=== PATIENT | female | born 1960 | race Two or more races ===

== ENCOUNTER 2016-12-15 07:12 | Inpatient (IN) | payer OTHER ==
[~2016-12-15] VITALS: Ht 152.4 cm; Wt 81.6 kg
[~2016-12-15 07:12] MED LIST: AUGMENTIN 875-1 EAC1 ORAL; AZITHROMYCIN250 MG ORAL; NKM; PEPCID40 MG PO; PROMETHAZINE-C118 M1 ORAL
[2016-12-15] MEDS ORDERED: Mylanta II UD 30ml ORAL ONE (07:30)
[2016-12-15] MEDS ORDERED: Lidocaine 2% Visc 15ml soln ORAL ONE (07:30)
[2016-12-15 08:04] LABS: APPEARANCE,URINE CLEAR; KETONES,URINE NEGATIVE (NEGATIVE); LEUKOCYTE ESTERASE ,URINE 1+ (NEGATIVE); NITRITE,URINE NEGATIVE (NEGATIVE); PH,URINE 5 (4.5-8.0); PROTEIN,URINE 3+ (NEGATIVE); UROBILINOGEN,URINE NORMAL MG/DL (0.0-1.0)
[2016-12-15 08:09] LABS: MEAN CORPUSCULAR HEMOGLOBIN 27.1 PG (27.0-31.0); MEAN CORPUSCULAR VOLUME 87 FL (80-99); MEAN PLATELET VOLUME 6.7 FL (6.5-10.1); PLATELET COUNT 242 K/UL (150-450); RED BLOOD COUNT 5.19 M/UL (4.20-5.40); RED CELL DISTRIBUTION WIDTH 13.2 % (11.6-14.8); WHITE BLOOD COUNT 8.2 K/UL (4.8-10.8)
[2016-12-15] MEDS ORDERED: Pantoprazole Inj IVP ONE (08:15)
--- NOTE | 2016-12-15 08:15 | Emergency Room Report ---
History of Present Illness General Chief Complaint: Abdominal Pain Source: Patient, Medical Record Present Illness HPI This patient has a history of gastritis. She states that she has had recurrent episodes of upper abdominal pain with nausea and vomiting. She states she's been diagnosed with gastritis. She states that she does have authorization to see a conservation worker to undergo upper endoscopy. She has not made an appointment yet. She does take acid reflux medications. She presents today with recurrence of previous symptoms. She states that she developed nausea, vomiting and diarrhea yesterday evening around 8 PM. She states that the symptoms were persistent and unrelenting all night. She denies chest pain or shortness of breath. She has no other complaints. Allergies: Coded Allergies: No Known Allergies (Unverified , 11/28/14) Patient History Past Medical History: see triage record, HTN, GERD, other - gastritis, anemia Past Surgical History: mario Social History: Denies: alcohol use, drug use, smoking Last Menstrual Period: menopause Reviewed Nursing Documentation: PMH: Agreed, PSxH: Agreed Nursing Documentation-PMH Past Medical History: No History, Except For Hx Hypertension: Yes Hx Gastrointestinal Problems: Yes - gatritis Review of Systems All Other Systems: negative except mentioned in HPI Physical Exam Vital Signs Date Time Temp Pulse Resp B/P Pulse Ox O2 Delivery O2 Flow Rate FiO2 12/15/16 07:31 97.3 73 16 164/72 99 Room Air Sp02 EP Interpretation: reviewed, normal General Appearance: no apparent distress, alert, GCS 15, non-toxic, other - actively vomiting Head: normocephalic, atraumatic Eyes: bilateral eye PERRL, bilateral eye normal inspection ENT: hearing grossly normal, normal pharynx, no angioedema, normal voice Neck: full range of motion, supple/symm/no masses Respiratory: chest non-tender, lungs clear, normal breath sounds, speaking full sentences Cardiovascular #1: regular rate, rhythm, no edema Gastrointestinal: normal bowel sounds, soft, non-distended, no guarding, no rebound, tenderness - TTP upper abdomen Rectal: deferred Musculoskeletal: back normal, gait/station normal, normal range of motion, non- tender Neurologic: alert, oriented x3, responsive, motor strength/tone normal, sensory intact, speech normal Psychiatric: judgement/insight normal, memory normal, mood/affect normal, no suicidal/homicidal ideation Skin: normal color, no rash, warm/dry, well hydrated Medical Decision Making Diagnostic Impression: Primary Impression: SBO (small bowel obstruction) ER Course This patient has a history of gastritis. She has had similar symptoms previously. However, when I was reviewing the patient's previous CT scan there was some questionable dilated small bowel. The patient's laboratory workup overall is benign. The patient's had slight elevations in AST and ALT. Patient is significantly tender to palpation on examination. I feel I should repeat a CT of the abdomen and pelvis given the previous CT and my physical exam , this showed evidence of a SBO. The patient was given Zofran, protonix, Mylanta, viscous lidocaine and Zantac. An NG tube was also placed on this patient. However, the tube became displaced during a vomiting episode in the patient refused replacement of the NG tube. The patient is admitted for further evaluation and treatment. Labs Test 12/15/16 07:50 White Blood Count 8.2 K/UL (4.8-10.8) Red Blood Count 5.19 M/UL (4.20-5.40) Hemoglobin 14.1 G/DL (12.0-16.0) Hematocrit 45.3 % (37.0-47.0) Mean Corpuscular Volume 87 FL (80-99) Mean Corpuscular Hemoglobin 27.1 PG (27.0-31.0) Mean Corpuscular Hemoglobin Concent 31.0 G/DL (32.0-36.0) Red Cell Distribution Width 13.2 % (11.6-14.8) Platelet Count 242 K/UL (150-450) Mean Platelet Volume 6.7 FL (6.5-10.1) Neutrophils (%) (Auto) % (45.0-75.0) Lymphocytes (%) (Auto) % (20.0-45.0) Monocytes (%) (Auto) % (1.0-10.0) Eosinophils (%) (Auto) % (0.0-3.0) Basophils (%) (Auto) % (0.0-2.0) Urine Color Pale yellow Urine Appearance Clear Urine pH 5 (4.5-8.0) Urine Specific [place] 1.025 (1.005-1.035) Urine Protein 3+ (NEGATIVE) Urine Glucose (UA) Negative (NEGATIVE) Urine Ketones Negative (NEGATIVE) Urine Occult Blood 2+ (NEGATIVE) Urine Nitrite Negative (NEGATIVE) Urine Bilirubin Negative (NEGATIVE) Urine Urobilinogen Normal MG/DL (0.0-1.0) Urine Leukocyte Esterase 1+ (NEGATIVE) Urine RBC 2-4 /HPF (0 - 2) Urine WBC 2-4 /HPF (0 - 2) Urine Squamous Epithelial Cells Few /LPF (NONE/OCC) Urine Bacteria Few /HPF (NONE) Urine Mucus Few /LPF (NONE/OCC) Sodium Level 138 mEQ/L (135-145) Potassium Level 4.8 mEQ/L (3.4-4.9) Chloride Level 98 mEQ/L (98-107) Carbon Dioxide Level 24 mEQ/L (20-30) Anion Gap 16 (5-15) Blood Urea Nitrogen 16 mg/dL (7-23) Creatinine 0.7 mg/dL (0.5-0.9) Estimat Glomerular Filtration Rate > 60 mL/min (>60) Glucose Level 166 mg/dL (74-106) Calcium Level 9.3 mg/dL (8.6-10.2) Total Bilirubin 0.9 mg/dL (0.0-1.2) Aspartate Amino Transf (AST/SGOT) 41 U/L (5-40) Alanine Aminotransferase (ALT/SGPT) 41 U/L (3-33) Alkaline Phosphatase 83 U/L (35-104) Total Protein 7.7 g/dL (6.6-8.7) Albumin 4.4 g/dL (3.5-5.2) Globulin 3.3 g/dL Albumin/Globulin Ratio 1.3 (1.0-2.7) Lipase 27 U/L (< 60) CT/MRI/US Diagnostic Results CT/MRI/US Diagnostic Results : Imaging Test Ordered: CT abd/pelvis Impression Impression: Dilated fluid-filled ileal loops, with transition to normal caliber distal ileum in the mid pelvis. Findings are concerning for distal small bowel obstruction. However, similar findings were also demonstrated on 11/28/2014 exam except that there is no transition point, so it is possible that findings could be on the basis of enteritis or ileus. Correlation with clinical findings is recommended Fatty liver Prior cholecystectomy Small hiatal hernia Prominent right paraovarian veins, could indicate the presence of pelvic congestion syndrome. Correlate with clinical history Critical value findings discussed by phone with Dr. Ferris in the emergency room at the time of interpretation Last Vital Signs Date Time Temp Pulse Resp B/P Pulse Ox O2 Delivery O2 Flow Rate FiO2 12/15/16 07:31 97.3 73 16 164/72 99 Room Air Disposition: ADMITTED INPATIENT Condition: Serious Referrals: KIRA SAUNDERS,REFERRING (PCP) HERIBERTO FERRIS D.O. Dec 15, 2016 08:15
[2016-12-15 08:19] LABS: ALANINE AMINOTRANSFERASE 41 U/L (3-33); ALBUMIN/GLOBULIN RATIO 1.3 (1.0-2.7); ANION GAP 16 (5-15); ASPARTATE AMINO TRANSFERASE 41 U/L (5-40); CALCIUM 9.3 mg/dL (8.6-10.2); CARBON DIOXIDE 24 mEQ/L (20-30); CHLORIDE 98 mEQ/L (98-107); CREATININE 0.7 mg/dL (0.5-0.9); GLOMERULAR FILTRATION RATE > 60 mL/min (>60); HEMOLYSIS 1; LIPASE 27 U/L (< 60); POTASSIUM 4.8 mEQ/L (3.4-4.9); SODIUM 138 mEQ/L (135-145); TOTAL PROTEIN 7.7 g/dL (6.6-8.7)
[2016-12-15 08:22] LABS: BACTERIA,URINE FEW /HPF; MUCUS,URINE FEW /LPF (NONE/OCC); SQUAMOUS EPITHELIAL CELL,UR FEW /LPF (NONE/OCC)
[2016-12-15 08:23] VITALS: BP 166/78
[2016-12-15] MEDS ORDERED: Morphine Sulfate 4mg/ml Inj IVP ONE ×2 (10:00→11:30)
[2016-12-15 11:40] LABS: BAND NEUTROPHILS % (MANUAL) 1 % (0-8); BASOPHILS % (MANUAL) 0 % (0-2); EOSINOPHILS % (MANUAL) 0 % (0-3); HYPOCHROMASIA 1+; LYMPHOCYTES % (MANUAL) 8 % (20-45); NEUTROPHILS % (MANUAL) 88 % (45-75); PLATELET ESTIMATE ADEQUATE; PLATELET MORPHOLOGY NORMAL; TOTAL CELLS COUNTED 100
--- NOTE | 2016-12-15 12:01 | Diagnostic Imaging Report ---
Clinical Indication: Left upper quadrant pain since last night with nausea, vomiting, diarrhea. History of gastritis Technique: No oral contrast utilized, per emergency room physician request IV administration nonionic contrast. Venous phase spiral acquisition obtained through the abdomen and pelvis. Multiplanar reconstructions were generated. Total dose length product 889 mGycm. CTDIvol(s) 18 mGy Comparison: 11/28/2014 Findings: The jejunum is normal in caliber. However, there is dilatation of the ileum, which is gas and fluid filled. The distal ileum normal in caliber. There is a transition point in the pelvic midline, images 62 through 67 series 3. The distal ileum is suggestively slightly thick walled. Note that on the prior scan, dilated fluid-filled distal small bowel loops are also noted, but without any normal caliber distal ileum. The appendix is normal. There is no evidence of diverticulosis or diverticulitis. No free or loculated intraperitoneal air or fluid. The distal esophagus demonstrates a small sliding-type hiatal hernia. The stomach is nondistended, grossly unremarkable. The liver is diffusely hypoattenuating, consistent with fatty change. There is evidence of prior cholecystectomy. No biliary ductal dilatation. The pancreas, spleen, adrenals, kidneys are unremarkable. No retroperitoneal or mesenteric mass or adenopathy. There are prominent right paraovarian veins. The included lung bases are clear. The heart is upper limits of normal in size. The bones demonstrate mild degenerative spondylosis changes. Impression: Dilated fluid-filled ileal loops, with transition to normal caliber distal ileum in the mid pelvis. Findings are concerning for distal small bowel obstruction. However, similar findings were also demonstrated on 11/28/2014 exam except that there is no transition point, so it is possible that findings could be on the basis of enteritis or ileus. Correlation with clinical findings is recommended Fatty liver Prior cholecystectomy Small hiatal hernia Prominent right paraovarian veins, could indicate the presence of pelvic congestion syndrome. Correlate with clinical history Critical value findings discussed by phone with Dr. Lozano in the emergency room at the time of interpretation The CT scanner at [facility] is accredited by the [employer] and the scans are performed using protocols designed to limit radiation exposure to as low as reasonably achievable to attain images of sufficient resolution adequate for diagnostic evaluation.
[2016-12-15 12:12] VITALS: BP 150/66
[2016-12-15] MEDS ORDERED: Metoclopramide 10mg/2ml Inj IVP ONE (14:00)
[2016-12-15 14:03] VITALS: BP 145/65
[2016-12-15 15:30] VITALS: BP 116/61
--- NOTE | 2016-12-15 18:42 | History and Physical ---
History of Present Illness General Date patient seen: Dec 15, 2016 Time patient seen: 18:42 Reason for Hospitalization: Abdominal Pain Present Illness HPI 55y/o female with pmh of gastritis, cholecystectomy who presents with recurrent episodes of upper abdominal pain with nausea and vomiting. She states she's been diagnosed with gastritis. She states that she does have authorization to see a teacher advisor to undergo upper endoscopy. She has not made an appointment yet. She does take acid reflux medications. She presents today with recurrence of previous symptoms. She states that she developed nausea, vomiting and diarrhea yesterday evening around 8 PM. She states that the symptoms were persistent and unrelenting all night. She denies chest pain or shortness of breath. She has no other complaints. In ED, pt had CT a/p done which showed concern for distal SBO. NGT was placed but it was then displaced and pt refused replacement. Allergies: Coded Allergies: No Known Allergies (Unverified , 11/28/14) Medication History Scheduled No Known Medications* (NKM - No Known Medications*), 0 ., (Reported) Pantoprazole* (Pantoprazole*), 40 MG ORAL DAILY Scheduled PRN Hydrocodone Bit/Acetaminophen 5-325* ([place] 5-325*), 1 TAB ORAL Q6H PRN Ondansetron Odt* (Zofran Odt*), 4 MG ORAL Q6H PRN Discontinued Medications Famotidine (Pepcid), 40 MG PO DAILY Discontinued Reason: MD discontinued med Patient History History Provided By: Patient, Family Member, Medical Record Healthcare decision maker Resuscitation status Advanced Directive on File Past Medical/Surgical History Past Medical/Surgical History: (1) S/P cholecystectomy Social History Social History: (1) No significant social history Review of Systems ROS Narrative CONSTITUTIONAL: No weight loss, fever, chills, weakness or fatigue. HEENT: Eyes: No visual loss, blurred vision, double vision or yellow sclerae. Ears, Nose, Throat: No hearing loss, sneezing, congestion, runny nose or sore throat. SKIN: No rash or itching. CARDIOVASCULAR: No chest pain, chest pressure or chest discomfort. No palpitations or edema. RESPIRATORY: No shortness of breath, cough or sputum. GASTROINTESTINAL: +abd pain, +n/v NEUROLOGICAL: No headache, dizziness, syncope, paralysis, ataxia, numbness or tingling in the extremities. No change in bowel or bladder control. MUSCULOSKELETAL: No muscle, back pain, joint pain or stiffness. HEMATOLOGIC: No anemia, bleeding or bruising. LYMPHATICS: No enlarged nodes. No history of splenectomy. PSYCHIATRIC: No history of depression or anxiety. ENDOCRINOLOGIC: No reports of sweating, cold or heat intolerance. No polyuria or polydipsia. ALLERGIES: No history of asthma, hives, eczema or rhinitis. Physical Exam Physical Exam Narrative General: alert, cooperative, no distress, appears stated age Head: normocephalic, without obvious abnormality, atraumatic Eyes: conjunctivae/corneas clear. PERRL, EOM's intact Throat: lips, mucosa, and tongue normal. MMM Neck: supple, symmetrical, trachea midline, and no JVD Lungs: clear to auscultation bilaterally Heart: regular rate and rhythm, S1, S2 normal, no murmur, click, rub or gallop Abdomen: soft, +TTP of epigastrium, non-distended, bowel sounds normal; no masses or organomegaly Extremities: extremities normal, atraumatic, no cyanosis or edema Pulses: 2+ and symmetric Skin: skin color, texture, turgor normal; no rashes or lesions Neurologic: grossly normal, no focal deficits Last 24 Hour Vital Signs Date Time Temp Pulse Resp B/P Pulse Ox O2 Delivery O2 Flow Rate FiO2 12/15/16 15:45 97.9 75 14 116/61 97 Room Air 12/15/16 15:30 97.9 75 14 116/61 97 Room Air 12/15/16 14:05 97.3 12/15/16 14:03 88 18 145/65 98 Room Air 12/15/16 12:12 82 15 150/66 100 Room Air 12/15/16 11:08 97.3 12/15/16 08:23 74 19 166/78 100 Room Air 12/15/16 07:31 97.3 73 16 164/72 99 Room Air Laboratory Tests Test 12/15/16 07:50 White Blood Count 8.2 K/UL (4.8-10.8) Red Blood Count 5.19 M/UL (4.20-5.40) Hemoglobin 14.1 G/DL (12.0-16.0) Hematocrit 45.3 % (37.0-47.0) Mean Corpuscular Volume 87 FL (80-99) Mean Corpuscular Hemoglobin 27.1 PG (27.0-31.0) Mean Corpuscular Hemoglobin Concent 31.0 G/DL (32.0-36.0) L Red Cell Distribution Width 13.2 % (11.6-14.8) Platelet Count 242 K/UL (150-450) Mean Platelet Volume 6.7 FL (6.5-10.1) Neutrophils (%) (Auto) % (45.0-75.0) Lymphocytes (%) (Auto) % (20.0-45.0) Monocytes (%) (Auto) % (1.0-10.0) Eosinophils (%) (Auto) % (0.0-3.0) Basophils (%) (Auto) % (0.0-2.0) Differential Total Cells Counted 100 Neutrophils % (Manual) 88 % (45-75) H Lymphocytes % (Manual) 8 % (20-45) L Monocytes % (Manual) 3 % (1-10) Eosinophils % (Manual) 0 % (0-3) Basophils % (Manual) 0 % (0-2) Band Neutrophils 1 % (0-8) Platelet Estimate Adequate Platelet Morphology Normal Hypochromasia 1+ Urine Color Pale yellow Urine Appearance Clear Urine pH 5 (4.5-8.0) Urine Specific [place] 1.025 (1.005-1.035) Urine Protein 3+ (NEGATIVE) H Urine Glucose (UA) Negative (NEGATIVE) Urine Ketones Negative (NEGATIVE) Urine Occult Blood 2+ (NEGATIVE) H Urine Nitrite Negative (NEGATIVE) Urine Bilirubin Negative (NEGATIVE) Urine Urobilinogen Normal MG/DL (0.0-1.0) Urine Leukocyte Esterase 1+ (NEGATIVE) H Urine RBC 2-4 /HPF (0 - 2) H Urine WBC 2-4 /HPF (0 - 2) Urine Squamous Epithelial Cells Few /LPF (NONE/OCC) Urine Bacteria Few /HPF (NONE) Urine Mucus Few /LPF (NONE/OCC) H Sodium Level 138 mEQ/L (135-145) Potassium Level 4.8 mEQ/L (3.4-4.9) Chloride Level 98 mEQ/L (98-107) Carbon Dioxide Level 24 mEQ/L (20-30) Anion Gap 16 (5-15) H Blood Urea Nitrogen 16 mg/dL (7-23) Creatinine 0.7 mg/dL (0.5-0.9) Estimat Glomerular Filtration Rate > 60 mL/min (>60) Glucose Level 166 mg/dL (74-106) H Calcium Level 9.3 mg/dL (8.6-10.2) Total Bilirubin 0.9 mg/dL (0.0-1.2) Aspartate Amino Transf (AST/SGOT) 41 U/L (5-40) H Alanine Aminotransferase (ALT/SGPT) 41 U/L (3-33) H Alkaline Phosphatase 83 U/L (35-104) Total Protein 7.7 g/dL (6.6-8.7) Albumin 4.4 g/dL (3.5-5.2) Globulin 3.3 g/dL Albumin/Globulin Ratio 1.3 (1.0-2.7) Lipase 27 U/L (< 60) Height (Feet): 5 Height (Inches): 2.00 Weight (Pounds): 180 Assessment/Plan Problem List: (1) SBO (small bowel obstruction) ICD Codes: K56.69 - Other intestinal obstruction SNOMED: 643850906 (2) Gastritis ICD Codes: K29.70 - Gastritis, unspecified, without bleeding SNOMED: 3248986 Status: stable Assessment/Plan Admit inpt NPO Pt refusing replacement of NGT mIVFs PPI Serial abd exams GI consult Pain control, bowel regimen, supportive care Monitor CBC, BMP Brai Marley M.D. Dec 15, 2016 18:42
[2016-12-15] MEDS ORDERED: Morphine Sulfate 2mg/ml Inj IVP PRN (18:45)
[2016-12-15] MEDS ORDERED: LORazepam Inj 2mg/ml 1ml IV PRN (18:45)
[2016-12-15] MEDS ORDERED: Mylanta II UD 30ml ORAL PRN (18:45)
[2016-12-15] MEDS ORDERED: Lidocaine 2% Visc 15ml soln ORAL PRN (18:45)
[2016-12-15] MEDS ORDERED: Norco 10mg/325mg tab ORAL PRN (18:45)
[2016-12-15] MEDS ORDERED: Metoclopramide 10mg/2ml Inj IVP PRN (18:45)
[2016-12-15] MEDS ORDERED: Zolpidem 5mg tab ORAL PRN (18:45)
[2016-12-15] MEDS ORDERED: D5 1/2NS w/KCl 20mEq 1,000 ML IV SCH (19:38)
[2016-12-15 20:00] VITALS: BP 114/51
[2016-12-15] MEDS: D5 1/2NS 1,000 ML IV SCH (21:49)
[2016-12-15] MEDS: Heparin 5000 units/ml inj SUBQ SCH (21:50)
[2016-12-15] MEDS: Docusate 100mg tablet ORAL SCH (21:50)
[2016-12-16] VITALS: BP 134/64
[2016-12-16 03:31] VITALS: BP 126/66
[2016-12-16] MEDS: D5 1/2NS 1,000 ML IV SCH ×2 (06:38→16:30)
[2016-12-16 07:17] LABS: BASOPHILS % (AUTO) 0.4 % (0.0-2.0); LYMPHOCYTES % (AUTO) 40.1 % (20.0-45.0); MEAN CORPUSCULAR HEMOGLOBIN 27.6 PG (27.0-31.0); MEAN CORPUSCULAR HGB CONC 31.8 G/DL (32.0-36.0); MEAN CORPUSCULAR VOLUME 87 FL (80-99); MONOCYTES % (AUTO) 11.8 % (1.0-10.0); NEUTROPHILS % (AUTO) 45.8 % (45.0-75.0); PLATELET COUNT 211 K/UL (150-450); RED CELL DISTRIBUTION WIDTH 12.7 % (11.6-14.8); WHITE BLOOD COUNT 5.4 K/UL (4.8-10.8)
[2016-12-16 07:34] LABS: ALANINE AMINOTRANSFERASE 33 U/L (3-33); ALBUMIN/GLOBULIN RATIO 1.3 (1.0-2.7); ANION GAP 13 (5-15); ASPARTATE AMINO TRANSFERASE 33 U/L (5-40); CALCIUM 8.5 mg/dL (8.6-10.2); CARBON DIOXIDE 27 mEQ/L (20-30); CHLORIDE 102 mEQ/L (98-107); CREATININE 0.6 mg/dL (0.5-0.9); GLOMERULAR FILTRATION RATE > 60 mL/min (>60); HEMOLYSIS 17; MAGNESIUM 2.2 mg/dL (1.7-2.5); POTASSIUM 4.1 mEQ/L (3.4-4.9); SODIUM 142 mEQ/L (135-145); TOTAL PROTEIN 6.2 g/dL (6.6-8.7)
[2016-12-16 08:00] VITALS: BP 153/90
[2016-12-16 08:01] LABS: BILIRUBIN,DIRECT 0.2 mg/dL (0.1-0.3)
[2016-12-16] MEDS: Heparin 5000 units/ml inj SUBQ SCH (09:00)
[2016-12-16] MEDS ORDERED: Pantoprazole Inj IV SCH (09:00)
[2016-12-16] MEDS: Docusate 100mg tablet ORAL SCH (09:00)
[2016-12-16 12:20] VITALS: BP 130/73
[2016-12-16 16:00] VITALS: BP 140/89
[2016-12-16] MEDS ORDERED: ZOFRAN ODT4 MG ORAL (16:27)
[2016-12-16] MEDS ORDERED: PANTOPRAZOLE SO40 MG ORAL (16:31)
[2016-12-16] MEDS ORDERED: NORCO 5-325 TA1 EACH ORAL (16:32)
--- NOTE | 2016-12-16 16:33 | Discharge Instructions ---
Discharge Instructions Discharge Instructions Follow up with: F/u with primary care physician and gastroenterology Call MD/Return to Hospital if: fevers, nausea/vomiting, abd pain, chest pain, SOB Diet: low fat Resume Normal Activity?: Yes Activity: resume normal activities For Congestive Heart Failure Reminder Report to your physician any weight gain of 5 pounds or more in one week. Bari Marley M.D. Dec 16, 2016 16:33
--- NOTE | 2016-12-16 21:58 | Consultation ---
DATE OF CONSULTATION: 12/16/2016 GASTROENTEROLOGY CONSULTATION CHIEF COMPLAINT: Nausea, vomiting, and abdominal pain. HISTORY OF PRESENT ILLNESS: This is a very pleasant 55-year-old female, who came to the hospital with complaint of one-day of severe nausea, vomiting, and diarrhea. The patient in the ER had a CT of the abdomen and pelvis. CT showed evidence of possible small bowel obstruction, but although this is chronic compared to prior imaging. The patient had fatty liver, prior history of cholecystectomy, hiatal hernia, and prominent right ovarian vein. The patient at this time denies any recurrent nausea or vomiting, and has minimum abdominal pain on the left lower quadrant, but she states she wants to eat and she wants to go home. PAST MEDICAL HISTORY: Significant for: 1. History of fatty liver. 2. Hypertension. 3. Cholecystectomy for gallstones. 4. Gastritis. 5. Anemia and history of blood transfusion in the past. PAST SURGICAL HISTORY: Cholecystectomy. ALLERGIES: No known drug allergy. MEDICATIONS: Please see medication reconciliation list. SOCIAL HISTORY: There is no history of tobacco, alcohol, or drug abuse. FAMILY HISTORY: Noncontributory. REVIEW OF SYSTEMS: A 10-point review of system was performed and pertinent positives as mentioned in the history of present illness. PHYSICAL EXAMINATION: VITAL SIGNS: Temperature 97.7 degrees, pulse is 64, respirations 19, and blood pressure 130/73. HEENT: Normocephalic and atraumatic. NECK: Supple. No lymphadenopathy. CARDIOVASCULAR: Regular rhythm. Plus S1 and S2. No obvious murmur. LUNGS: Clear to auscultation bilaterally. ABDOMEN: Positive bowel sounds. Soft. There is minimal tenderness to palpation in the left lower quadrant. No rebound. No guarding. No peritoneal sign. EXTREMITIES: No cyanosis. No clubbing. No edema. LABORATORY DATA: White count is 5.4, hemoglobin 11.9, hematocrit 37.4, and platelet count is 211,000. Chemistry, sodium 142, potassium 4.1, BUN is 11, and creatinine is 0.6. Liver function is grossly normal. ASSESSMENT AND PLAN: This is a 55-year-old female with nausea, vomiting, and diarrhea. CT suspicious for small bowel obstruction, but the patient just passed gas now. Abdominal pain according to her significantly improved. There is no leukocytosis. No significant abnormal liver function tests. Relatively benign exam for minimum tenderness, so we will recommend starting the patient on a diet and advance as tolerated. If the patient tolerated diet without any vomiting, can go home today and follow up as an outpatient. Melecio Fanta [place] DR: BHANU JOB#: [id number] CC:
--- NOTE | 2016-12-16 22:12 | Discharge Summary ---
Discharge Summary Hospital Course Date of Admission Dec 15, 2016 at 12:20 Date of Discharge Dec 16, 2016 at 18:47 Admitting Diagnosis SBO Reason for Hospitalization: SBO HPI 55y/o female with pmh of gastritis, cholecystectomy who presents with recurrent episodes of upper abdominal pain with nausea and vomiting. She states she's been diagnosed with gastritis. She states that she does have authorization to see a product safety technical assistant to undergo upper endoscopy. She has not made an appointment yet. She does take acid reflux medications. She presents today with recurrence of previous symptoms. She states that she developed nausea, vomiting and diarrhea yesterday evening around 8 PM. She states that the symptoms were persistent and unrelenting all night. She denies chest pain or shortness of breath. She has no other complaints. In ED, pt had CT a/p done which showed concern for distal SBO. NGT was placed but it was then displaced and pt refused replacement. Consultations Gastroenterology Hospital Course Pt was admitted and treated conservatively with NPO, IVFs, serial abdominal exams. Pt continued to refuse NGT re-placement. GI was consulted. Given improvement in symptoms, pt was started on CLD and advanced to soft diet which she tolerated well. Prior to d/c, pt was HD stable, tolerating PO, and ambulating w/o assistance. Discharge Medications New Medications: Hydrocodone Bit/Acetaminophen 5-325* ([place] 5-325*) 1 Each Tablet 1 TAB ORAL Q6H PRN, #30 TAB 0 Refills Ondansetron Odt* (Zofran Odt*) 4 Mg Tab.rapdis 4 MG ORAL Q6H PRN, #30 TAB 0 Refills Pantoprazole* (Pantoprazole*) 40 Mg Tablet.dr 40 MG ORAL DAILY for 30 Days, TAB Discontinued Medications: Famotidine (Pepcid) 40 Mg Tablet 40 MG PO DAILY, #7 TAB 0 Refills Discharge Condition Upon Discharge: stable Discharge Disposition Patient was discharged to Home (01) Discharge Diagnoses: (1) SBO (small bowel obstruction) (2) Gastritis Discharge Instructions Discharge Instructions Follow up with: F/u with primary care physician and gastroenterology Call MD/Return to Hospital if: fevers, nausea/vomiting, abd pain, chest pain, SOB Activity: resume normal activities Bari Marley M.D. Dec 16, 2016 22:12
--- NOTE | 2016-12-17 15:17 | Discharge Summary ---
Discharge Summary Hospital Course Date of Admission Dec 15, 2016 at 12:20 Date of Discharge Dec 16, 2016 at 18:47 Admitting Diagnosis SBO HPI Columba Solorio is a 55 year old female who was admitted on Dec 15, 2016 at 12:20 for Small Bowel Obstruction Hospital Course 55y/o female with pmh of gastritis, cholecystectomy who presents with recurrent episodes of upper abdominal pain with nausea and vomiting. She states she's been diagnosed with gastritis. She states that she does have authorization to see a solution director to undergo upper endoscopy. She has not made an appointment yet. She does take acid reflux medications. She presents today with recurrence of previous symptoms. She states that she developed nausea, vomiting and diarrhea yesterday evening around 8 PM. She states that the symptoms were persistent and unrelenting all night. She denies chest pain or shortness of breath. She has no other complaints. In ED, pt had CT a/p done which showed concern for distal SBO. NGT was placed but it was then displaced and pt refused reinsertion. She was seen by GI specialist. CT suspicious for small bowel obstruction, but the patient passed gas. Abdominal pain improved. There is no leukocytosis. No significant abnormal liver function tests. Relatively benign exam for minimum tenderness. Diet was advanced. I have been assigned to complete a discharge summary on this account. I was not involved in the patient's management. --Ranjan Navarro NP Problem List: (1) SBO (small bowel obstruction), resolved. (2) Gastritis Discharge Discharge Disposition Patient was discharged to Home (01) Discharge Diagnoses: Discharge Instructions Discharge Instructions Follow up with: F/u with primary care physician and gastroenterology Call MD/Return to Hospital if: fevers, nausea/vomiting, abd pain, chest pain, SOB Activity: resume normal activities Sandy Navarro NP Dec 17, 2016 15:17
== END 2016-12-16 18:47 | disposition home or self-care (01) | DRG 390 ==
LOC: EMR 07:44 → 4W 12:20 → EDBEDREQ 15:16 → 4W 12-16 12:49
DX: K56.60 Unspecified intestinal obstruction (principal); I10 Essential (primary) hypertension; K29.70 Gastritis, unspecified, without bleeding
CPT/HCPCS: 36415; 74177; 80053; 81003; 82248; 83690; 83735; 85007; 85025; J2405; J2765

== ENCOUNTER 2018-11-07 22:45 | Inpatient (IN) | payer MEDICAID, OTHER ==
[~2018-11-07] VITALS: Ht 152.4 cm; Wt 86.2 kg
[~2018-11-07 22:45] MED LIST changes: +NORCO 5-325 TA1 EACH ORAL; +PANTOPRAZOLE SO40 MG ORAL; +ZOFRAN ODT4 MG ORAL
[2018-11-07] MEDS ORDERED: UNOBMED (23:01)
[2018-11-07 23:05] VITALS: BP 174/83
--- NOTE | 2018-11-07 23:08 | NUR ---
ED Nurse Note: Patient walk in c/o N/V and upper abdominal pain since this morning.
[2018-11-07] MEDS ORDERED: Morphine Sulfate 4mg/ml Inj (IV/IM USE ONLY) IVP ONE (23:15)
--- NOTE | 2018-11-07 23:27 | NUR ---
ED Nurse Note: Pt friend left phone number to contact [phone]
[2018-11-07 23:37] LABS: BASOPHILS % (AUTO) 0.4 % (0.0-2.0); EOSINOPHILS % (AUTO) 0.6 % (0.0-3.0); HEMATOCRIT 43.3 % (37.0-47.0); HEMOGLOBIN 13.1 G/DL (12.0-16.0); LYMPHOCYTES % (AUTO) 12.6 % (20.0-45.0); MEAN CORPUSCULAR VOLUME 79 FL (80-99); MONOCYTES % (AUTO) 4.5 % (1.0-10.0); NEUTROPHILS % (AUTO) 81.9 % (45.0-75.0); PLATELET COUNT 273 K/UL (150-450); RED BLOOD COUNT 5.49 M/UL (4.20-5.40); RED CELL DISTRIBUTION WIDTH 16.7 % (11.6-14.8); WHITE BLOOD COUNT 12.7 K/UL (4.8-10.8)
[2018-11-07 23:47] LABS: ANION GAP 10 mmol/L (5-15); BLOOD UREA NITROGEN 17 mg/dL (7-18); CALCIUM 9.3 MG/DL (8.5-10.1); CARBON DIOXIDE 26 MMOL/L (21-32); CHLORIDE 103 MMOL/L (98-107); POTASSIUM 4.5 MMOL/L (3.5-5.1); SODIUM 139 MMOL/L (136-145)
[2018-11-07 23:52] LABS: ALANINE AMINOTRANSFERASE 37 U/L (12-78); ALBUMIN/GLOBULIN RATIO 0.9 (1.0-2.7); ALKALINE PHOSPHATASE 116 U/L (46-116); ASPARTATE AMINO TRANSFERASE 35 U/L (15-37); BILIRUBIN,TOTAL 0.8 MG/DL (0.2-1.0)
--- NOTE | 2018-11-07 23:55 | NUR ---
ED Nurse Note: PT refused NG tube order. aware.
--- NOTE | 2018-11-08 00:04 | Emergency Room Report ---
History of Present Illness General Chief Complaint: Abdominal Pain Source: Patient Present Illness HPI Is a 57-year-old female with history hypertension. She also history of cystectomy with recurrent gastritis. She has previous small bowel obstruction in the past. She presents with chief complaint of abdominal pain. Localized to the epigastric area. She has several episode of bilious vomiting. No diarrhea. Not passing gas. Pain is sharp in nature. 9 out of 10. No fever chills. Similar symptom in the past. Medication not helping. Allergies: Coded Allergies: No Known Allergies (Unverified , 11/28/14) Patient History Past Medical History: see triage record, old chart reviewed, HTN Past Surgical History: mario Pertinent Family History: none Social History: Denies: smoking Last Menstrual Period: [place] Now: No Immunizations: other Reviewed Nursing Documentation: PMH: Agreed; PSxH: Agreed Nursing Documentation-PMH Past Medical History: No History, Except For Hx Cardiac Problems: No Hx Hypertension: Yes Hx Cancer: No Hx Gastrointestinal Problems: Yes - Gastritis Hx Neurological Problems: No Review of Systems Eye: Denies: eye pain, blurred vision ENT: Denies: ear pain, nose congestion, throat swelling Respiratory: Denies: cough, shortness of breath Cardiovascular: Denies: chest pain, palpitations Gastrointestinal: Reports: abdominal pain, nausea, vomiting; Denies: diarrhea Musculoskeletal: Denies: back pain, joint pain Skin: Denies: rash Neurological: Denies: headache, numbness Endocrine: Denies: increased thirst, increased urine Hematologic/Lymphatic: Denies: easy bruising All Other Systems: negative except mentioned in HPI Physical Exam Vital Signs Date Time Temp Pulse Resp B/P (MAP) Pulse Ox O2 Delivery O2 Flow Rate FiO2 11/07/18 22:57 97.5 70 16 174/83 97 Room Air 11/07/18 23:05 99 vitals with high blood pressure Sp02 EP Interpretation: reviewed, normal General Appearance: well appearing, no apparent distress, alert Head: normocephalic, atraumatic Eyes: bilateral eye PERRL, bilateral eye EOMI ENT: hearing grossly normal, normal pharynx Neck: full range of motion, supple, no meningismus Respiratory: chest non-tender, lungs clear, normal breath sounds Cardiovascular #1: regular rate, rhythm, no murmur Gastrointestinal: no mass, no organomegaly, no bruit, non-distended, tenderness - Epigastric, decreased bowel sounds Musculoskeletal: back normal, gait/station normal, normal range of motion Neurologic: alert, oriented x3 Psychiatric: mood/affect normal Skin: warm/dry Medical Decision Making Diagnostic Impression: Primary Impression: SBO (small bowel obstruction) ER Course Patient with small bowel obstruction. This probably secondary to adhesion. 2 border. Patient is otherwise stable and patient will be admitted here versus transfer based on insurance. This was approved for admission here. NG tube was placed. She is pain-free now. Fell better. She wanted to leave. She is competent to leave AMA. I discussed this with her family and they could not convince her to change her mind. We'll discharge AMA. Rhythm Strip Diag. Results EP Interpretation: yes Rate: 88 Rhythm: NSR, no PVC's, no ectopy Other X-Ray Diagnostic Results Other X-Ray Diagnostic Results : X-Ray ordered: KUB # of Views/Limited Vs Complete: 1 View Indication: Pain EP Interpretation: Yes Interpretation: no dislocation, no soft tissue swelling, no fractures, other - NG tube in stomach Impression: Other - NGT in satisfactory position CT/MRI/US Diagnostic Results CT/MRI/US Diagnostic Results : Imaging Test Ordered: CT abdomen and pelvis Impression Read by radiologist. Small bowel obstruction. Last Vital Signs Date Time Temp Pulse Resp B/P (MAP) Pulse Ox O2 Delivery O2 Flow Rate FiO2 11/07/18 23:46 97.5 11/07/18 23:05 70 16 Room Air 99 11/07/18 23:05 174/83 97 Status: improved Disposition: AGAINST MEDICAL ADVICE Condition: Stable Referrals: NON PHYSICIAN (PCP) Additional Instructions: You are leaving AGAINST MEDICAL ADVICE. Follow-up with your doctor FRED. Return if symptom worsen. Chano Lujan MD Nov 08, 2018 00:04
--- NOTE | 2018-11-08 00:10 | NUR ---
ED Nurse Note: PT NG tube place. X ray confirmation is approved my MD Lujan. NG tube is properly in placed, X ray confirmed.
[2018-11-08 00:47] VITALS: BP 150/81
--- NOTE | 2018-11-08 01:12 | NUR ---
ED Nurse Note: PT is transfered to MED SURG with RN SLOAN. pt status, condition and vital signs are reported to ERMD and receving RN prior to transfer. pt vital signs, status and condtion are stable and pt is stable for transfer at this time.
[2018-11-08] MEDS ORDERED: Morphine Sulfate 4mg/ml Inj (IV/IM USE ONLY) IVP ONE (01:30)
--- NOTE | 2018-11-08 02:00 | NUR ---
NURSE NOTES: Recieved patient from ER, report given by Artemio CHEN, patient is in her room, sleep, feels tired, resting, no acute distress noted, NG tube in place, oriented patient to the room, patient speaks both Telugu and Marshallese, belongings were accounted for and signed. RN called Dr. Flores and left a voice message, VSS, 169/90, afebrile. Call light is within reach, bed is in low position and alarm is on.
--- NOTE | 2018-11-08 02:40 | NUR ---
NURSE NOTES: called MD for the second time to obtain an admission orders, left vm
[2018-11-08 04:00] VITALS: BP 150/81
[2018-11-08] MEDS ORDERED: Metoclopramide 10mg/2ml Inj IVP PRN (05:45)
[2018-11-08 05:47] VITALS: BP 149/85
[2018-11-08] MEDS: HYDROmorphone 1mg/ml Carpuject IVP PRN (05:53)
[2018-11-08 07:10] LABS: HEMATOCRIT 43.3 % (37.0-47.0); HEMOGLOBIN 13.5 G/DL (12.0-16.0); MEAN CORPUSCULAR VOLUME 78 FL (80-99); PLATELET COUNT 304 K/UL (150-450); RED BLOOD COUNT 5.58 M/UL (4.20-5.40); RED CELL DISTRIBUTION WIDTH 16.6 % (11.6-14.8); WHITE BLOOD COUNT 14.5 K/UL (4.8-10.8)
[2018-11-08 07:29] LABS: ALANINE AMINOTRANSFERASE 48 U/L (12-78); ALBUMIN 4.1 G/DL (3.4-5.0); ALBUMIN/GLOBULIN RATIO 0.9 (1.0-2.7); ALKALINE PHOSPHATASE 118 U/L (46-116); ANION GAP 13 mmol/L (5-15); ASPARTATE AMINO TRANSFERASE 40 U/L (15-37); BILIRUBIN,TOTAL 1.2 MG/DL (0.2-1.0); BLOOD UREA NITROGEN 17 mg/dL (7-18); CALCIUM 9.3 MG/DL (8.5-10.1); CARBON DIOXIDE 22 MMOL/L (21-32); CHLORIDE 103 MMOL/L (98-107); CREATININE 0.8 MG/DL (0.55-1.30); POTASSIUM 3.8 MMOL/L (3.5-5.1); SODIUM 138 MMOL/L (136-145)
[2018-11-08 07:31] LABS: BILIRUBIN,DIRECT 0.2 MG/DL (0.0-0.3)
--- NOTE | 2018-11-08 07:34 | NUR ---
HAND-OFF: Report given to Antwon CHEN.
--- NOTE | 2018-11-08 07:45 | NUR ---
NURSE NOTES: Received report from APRIL Seth. Rounding done with outgoing nurse. Patient a/o x4. NG tube with continuous low suction and output is greenish color. IV is patent. Bed in lowest position, call light within reach. Will continue to monitor.
[2018-11-08 08:00] VITALS: BP 159/88
[2018-11-08] MEDS: Pantoprazole Inj IVP SCH (09:02)
--- NOTE | 2018-11-08 09:30 | NUR ---
NURSE NOTES: Patient vomited and Dr. Glover aware.
--- NOTE | 2018-11-08 10:03 | Diagnostic Imaging Report ---
Indication: Abdominal pain Technique: Continuous helical transaxial imaging of the abdomen and pelvis was obtained from the lung bases to the pubic symphysis. No intravenous contrast was administered. Coronal 2-D reformats were also obtained. Automatic Exposure Control was utilized. Total Dose length Product (DLP): 902.[address] Dose Index Volume (CTDIvol): 17.25 mGy Comparison: 12/15/2016 CT abdomen pelvis Findings: The stomach and proximal jejunum do not appear distended. However distal small bowel loops appear distended. There appears to be a transition in the lower abdomen/pelvis (for example images 106-108 series 3). The findings are suggestive of a bowel obstruction which may be partial. However, the appearance was very similar to the prior occasion. Please correlate clinically. Focal enteritis/ileus seems unlikely given the transition which appears fairly abrupt. There is no pneumatosis or free air. The bladder is nondistended. Uterus noted. Cholecystectomy noted. Hiatal hernia is present. The liver is hypodense. There is no hydronephrosis. IMPRESSION: Suspicion of mechanical small bowel obstruction involving the distal small bowel with a transition identified in the lower pelvis. The appearance is unchanged from 12/15/2016 suggesting this may be a chronic or intermittent phenomenon. Fatty liver Status post cholecystectomy. Hiatal hernia. [facility] has communicated the preliminary results to the Emergency Department. Their findings are largely concordant with this report. The CT scanner at [facility] is accredited by the [employer] and the scans are performed using dose optimization techniques as appropriate to a performed exam including Automatic Exposure control.
--- NOTE | 2018-11-08 11:30 | NUR ---
NURSE NOTES: Dr. Glover called and want me to call Dr. Flores that patient does not have bowel obstruction. Dr. Flores notified.
--- NOTE | 2018-11-08 12:21 | Diagnostic Imaging Report ---
Indication: Abdominal pain Comparison: None Single view of the abdomen obtained Findings: NG tube is in good position. There is relative absence of bowel gas on the current study. Surgical clips in the right upper quadrant of the abdomen noted. IMPRESSION: Relative absence of bowel gas limits evaluation. NG tube in good position.
--- NOTE | 2018-11-08 13:20 | NUR ---
NURSE NOTES: X-ray small bowel with Gastrografi was done. Patient in stable condition.
--- NOTE | 2018-11-08 13:28 | Diagnostic Imaging Report ---
Indication: Bowel obstruction COMPARISON: CT 11/07/2018 FINDINGS: Small bowel series was performed utilizing water-soluble contrast material. Serial films were obtained. Study was performed through nasogastric tube. There was normal transit of contrast through small bowel with contrast reaching the right hemicolon by about 45 minutes. There is mild mucosal thickening of the some of the distal small bowel loops. At the one hour 30 minute armando, contrast was seen in the left hemicolon. IMPRESSION: Normal bowel transit. No evidence of small bowel obstruction
--- NOTE | 2018-11-08 14:04 | GI Initial Consult Note ---
History of Present Illness General Date patient seen: Nov 08, 2018 Time patient seen: 13:57 Reason for Hospitalization: Abdominal Pain Referring physician: GREGG Goncalves Reason for Consultation: SBO Present Illness HPI Is a 57-year-old female with history hypertension. She also history of cystectomy with recurrent gastritis. She has previous small bowel obstruction in the past. She presents with chief complaint of abdominal pain. Localized to the epigastric area. She has several episode of bilious vomiting. No diarrhea. Not passing gas. Pain is sharp in nature. 9 out of 10. No fever chills. Similar symptom in the past. Medication not helping. GI consulted for abdominal pain, rule out small bowel obstruction. Presents today with epigastric pain. Status post small bowel follow-through noted to have rapid transit with no small bowel obstruction. Labs reviewed; noted with leukocytosis. No anemia. No transaminitis. Unknown history of endoscopic colonoscopy at this time. Home Meds Active Scripts Hydrocodone Bit/Acetaminophen 5-325* (NORCO 5-325*) 1 Each Tablet, 1 TAB ORAL Q6H PRN, #30 TAB 0 Refills Prov:Bari Marley M.D. 12/16/16 Pantoprazole* (PANTOPRAZOLE*) 40 Mg Tablet.dr, 40 MG ORAL DAILY for 30 Days, TAB Prov:Bari Marley M.D. 12/16/16 Ondansetron Odt* (ZOFRAN ODT*) 4 Mg Tab.rapdis, 4 MG ORAL Q6H PRN, #30 TAB 0 Refills Prov:Bari Marley M.D. 12/16/16 Reported Medications Unable to Obtain Medications (UNABLE TO OBTAIN MEDS) 1 Ea Ea 11/07/18 No Known Medications* (NKM - No Known Medications*) ., 0 ., 0 Refills 11/28/14 Med list reviewed/reconciled: Yes Allergies: Coded Allergies: No Known Allergies (Unverified , 11/28/14) Patient History Limited by: medical condition History Provided By: Patient, Medical Record PMH Narrative Past Medical History: see triage record, old chart reviewed, HTN Past Surgical History: mario Pertinent Family History: none Social History: Denies: smoking Last Menstrual Period: [place] Now: No Immunizations: other Reviewed Nursing Documentation: PMH: Agreed; PSxH: Agreed Nursing Documentation-PMH Past Medical History: No History, Except For Hx Cardiac Problems: No Hx Hypertension: Yes Hx Cancer: No Hx Gastrointestinal Problems: Yes - Gastritis Hx Neurological Problems: No Review of Systems All Other Systems: negative except mentioned in HPI Physical Exam Vital Signs Date Time Temp Pulse Resp B/P (MAP) Pulse Ox O2 Delivery O2 Flow Rate FiO2 11/07/18 22:57 97.5 70 16 174/83 97 Room Air 11/07/18 23:05 99 Sp02 EP Interpretation: reviewed, normal Labs Laboratory Tests Test 11/07/18 23:18 11/08/18 06:00 11/08/18 06:23 White Blood Count 12.7 K/UL (4.8-10.8) H 14.5 K/UL (4.8-10.8) H Red Blood Count 5.49 M/UL (4.20-5.40) H 5.58 M/UL (4.20-5.40) H Hemoglobin 13.1 G/DL (12.0-16.0) 13.5 G/DL (12.0-16.0) Hematocrit 43.3 % (37.0-47.0) 43.3 % (37.0-47.0) Mean Corpuscular Volume 79 FL (80-99) L 78 FL (80-99) L Mean Corpuscular Hemoglobin 23.9 PG (27.0-31.0) L 24.2 PG (27.0-31.0) L Mean Corpuscular Hemoglobin Concent 30.2 G/DL (32.0-36.0) L 31.2 G/DL (32.0-36.0) L Red Cell Distribution Width 16.7 % (11.6-14.8) H 16.6 % (11.6-14.8) H Platelet Count 273 K/UL (150-450) 304 K/UL (150-450) Mean Platelet Volume 5.9 FL (6.5-10.1) L 5.8 FL (6.5-10.1) L Neutrophils (%) (Auto) 81.9 % (45.0-75.0) H % (45.0-75.0) Lymphocytes (%) (Auto) 12.6 % (20.0-45.0) L % (20.0-45.0) Monocytes (%) (Auto) 4.5 % (1.0-10.0) % (1.0-10.0) Eosinophils (%) (Auto) 0.6 % (0.0-3.0) % (0.0-3.0) Basophils (%) (Auto) 0.4 % (0.0-2.0) % (0.0-2.0) Sodium Level 139 MMOL/L (136-145) 138 MMOL/L (136-145) Potassium Level 4.5 MMOL/L (3.5-5.1) 3.8 MMOL/L (3.5-5.1) Chloride Level 103 MMOL/L (98-107) 103 MMOL/L (98-107) Carbon Dioxide Level 26 MMOL/L (21-32) 22 MMOL/L (21-32) Anion Gap 10 mmol/L (5-15) 13 mmol/L (5-15) Blood Urea Nitrogen 17 mg/dL (7-18) 17 mg/dL (7-18) Creatinine 1.0 MG/DL (0.55-1.30) 0.8 MG/DL (0.55-1.30) Estimat Glomerular Filtration Rate 56.8 mL/min (>60) > 60 mL/min (>60) Glucose Level 189 MG/DL (74-106) H 169 MG/DL (74-106) H Calcium Level 9.3 MG/DL (8.5-10.1) 9.3 MG/DL (8.5-10.1) Total Bilirubin 0.8 MG/DL (0.2-1.0) 1.2 MG/DL (0.2-1.0) H Aspartate Amino Transf (AST/SGOT) 35 U/L (15-37) 40 U/L (15-37) H Alanine Aminotransferase (ALT/SGPT) 37 U/L (12-78) 48 U/L (12-78) Alkaline Phosphatase 116 U/L (46-116) 118 U/L (46-116) H Total Protein 8.3 G/DL (6.4-8.2) H 8.5 G/DL (6.4-8.2) H Albumin 4.0 G/DL (3.4-5.0) 4.1 G/DL (3.4-5.0) Globulin 4.3 g/dL 4.4 g/dL Albumin/Globulin Ratio 0.9 (1.0-2.7) L 0.9 (1.0-2.7) L Lipase 112 U/L (73-393) Urine Color Pending Urine Appearance Pending Urine pH Pending Urine Specific [place] Pending Urine Protein Pending Urine Glucose (UA) Pending Urine Ketones Pending Urine Blood Pending Urine Nitrite Pending Urine Bilirubin Pending Urine Urobilinogen Pending Urine Leukocyte Esterase Pending Differential Total Cells Counted 100 Neutrophils % (Manual) 86 % (45-75) H Lymphocytes % (Manual) 3 % (20-45) L Monocytes % (Manual) 2 % (1-10) Eosinophils % (Manual) 0 % (0-3) Basophils % (Manual) 0 % (0-2) Band Neutrophils 9 % (0-8) H Platelet Estimate Adequate Platelet Morphology Normal Hypochromasia 1+ Anisocytosis 1+ Microcytosis 1+ Direct Bilirubin 0.2 MG/DL (0.0-0.3) General Appearance: well appearing, no apparent distress, alert Head: normocephalic EENT: PERRL/EOMI, normal ENT inspection Neck: supple Respiratory: normal breath sounds, no respiratory distress Cardiovascular: normal rate Gastrointestinal: normal inspection, non tender, soft, normal bowel sounds, non -distended Rectal: deferred Genitourinary: no CVA tenderness Musculoskeletal: normal inspection, back normal Neurologic: alert, responsive Psychiatric: memory normal - History 20 alert and oriented Skin: normal inspection, normal color, no rash, warm/dry, palpation normal, well hydrated Lymphatic: normal inspection, no adenopathy Current Medications Current Medications Medications (Trade) Dose Ordered Sig/Monica Route PRN Reason Start Time Stop Time Status Last Admin Dose Admin Amlodipine Besylate (Norvasc) 5 mg DAILY ORAL 11/08/18 09:00 12/08/18 08:59 11/08/18 09:02 Clonidine HCl (Catapres Tab) 0.1 mg Q6H PRN NG For High Blood Pressure 11/08/18 04:15 12/08/18 04:14 Hydromorphone HCl (Dilaudid) 1 mg Q4H PRN IVP For Pain 11/08/18 05:45 11/15/18 05:44 11/08/18 05:53 Metoclopramide HCl (Reglan) 10 mg Q6H PRN IVP Nausea & Vomiting 11/08/18 05:45 12/08/18 05:44 Ondansetron HCl (Zofran) 4 mg Q6H PRN IVP Nausea & Vomiting 11/08/18 04:15 12/08/18 04:14 11/08/18 05:01 Pantoprazole (Protonix) 40 mg DAILY IVP 11/08/18 09:00 12/08/18 08:59 11/08/18 09:02 Sodium Chloride 1,000 ml @ 60 mls/hr [id number] IV 11/08/18 05:00 12/08/18 04:59 11/08/18 04:55 GI: Plan Problems: (1) Abdominal pain of unknown etiology (2) SBO (small bowel obstruction) (3) Enteritis (4) Gastritis (5) S/P cholecystectomy Plan Small bowel follow-through noted with rapid transit and no bowel obstruction. EGD scheduled for tomorrow to evaluate abdominal pain. Maintain n.p.o. plus IV fluids Hold all blood thinners tonight Antibiotics PPI Follow-up labs We will follow with additional recommendations post procedure Discussed with Dr. Espana. Thank you for this patient referral, we will follow. The patient was seen and examined at bedside and all new and available data was reviewed in the patients chart. I agree with the above findings, impression and plan. (Patient seen earlier today. Signature stamp does not reflect patient encounter time.). - MD Le Fall,[facility] CHANNEL SPECIALIST Nov 08, 2018 14:04
--- NOTE | 2018-11-08 14:15 | Consultation ---
DATE OF CONSULTATION: 11/08/2018 CONSULTING PHYSICIAN: Nader Glover M.D. REFERRING PHYSICIAN: Kristie Flores M.D. REASON FOR CONSULTATION: Abdominal pain and vomiting. HISTORY OF PRESENT ILLNESS: This is a 57-year-old female, who presented to emergency room complaining of abdominal pain and vomiting since yesterday morning. The pain apparently is located at the epigastrium and it is crampy. She stated that she had a bowel movement last night, but since the bowel movement she had not passed any gas. She claims that in the last 2 years, she has had this similar episodes a few times and she had always been diagnosed with small bowel obstruction. The only surgery that she had was 19 years ago and that was a laparoscopic cholecystectomy. She denies any fever, cough, dysuria, or frequency. PAST MEDICAL HISTORY: She denies allergies, asthma, diabetes, hypertension, cardiac or renal diseases. SURGERIES: Laparoscopic cholecystectomy. MEDICATIONS: Omeprazole. SOCIAL HISTORY: The patient is a 57-year-old female, who is with 4 children. 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 Denies smoking and drinking. REVIEW OF SYSTEMS: Noncontributory. PHYSICAL EXAMINATION: GENERAL: The patient appeared to be a well-developed, well-nourished, mildly obese, 57-year-old female, lying on the bed, complaining mainly of vomiting. HEENT: Head is normocephalic and atraumatic. Eyes, pupils are equal, round, and reactive to light. Mouth is clear. NECK: There is no palpable thyromegaly or adenopathy. CHEST: Clear to auscultation and percussion. HEART: There is no gallop or murmur. S1 and S2 are within normal limits. ABDOMEN: Obese, soft, with mild tenderness at the epigastrium. Bowel sounds are present. EXTREMITIES: Within normal limits. LABORATORY AND DIAGNOSTIC DATA: CBC has shown a WBC of 12,700 with a left shift. Chemistry is within normal limits except for the blood glucose, which has been 189. CAT scan of the abdomen has been interpreted as small bowel obstruction. The same picture is present in 2015. ASSESSMENT: Abdominal pain. RECOMMENDATION: At this time, I do not feel that the patient has a small bowel obstruction. She probably has peptic ulcer disease. I took the liberty of ordering a small bowel followthrough with Gastrografin. At the present time, she requires a conservative treatment. Thank you, Dr. Kristie Flores, for asking me to participate in the management of this patient. I will follow the patient with you. Nader Glover M.D. DR: JUANA JOB#: [id number] CC:
--- NOTE | 2018-11-08 14:45 | NUR ---
NURSE NOTES: [employer] TRIMMER Agus ordered remove NG tube. Noted and carried out.
--- NOTE | 2018-11-08 14:50 | NUR ---
*-* INSURANCE *-* ALL CLINICALS AND REVIEWS HAVE BEEN FAXED TO: [employer] CALL REF#: [id number] [employer]ENDER: [place]IN F#: [phone] PLEASE FAX CLINICALS TO ABOVE # DAILY
[2018-11-08 16:00] VITALS: BP 130/74
--- NOTE | 2018-11-08 19:30 | NUR ---
NURSE NOTES:Patient received from MOI HERRERA R.N. . Patient A/A/AOX4 .Patient in bed . Patient denies of pain at this time . no s/s of distress noted . ELBA G#20 / ns @60 cc/hr infusing well . call light within reach . bed in low position at all times . will continue to monitor.
--- NOTE | 2018-11-08 19:34 | NUR ---
HAND-OFF: Report given to NEHEMIAS Vann.
[2018-11-08 20:00] VITALS: BP 107/73
--- NOTE | 2018-11-08 20:21 | NUR ---
CASE MANAGEMENT: REVIEW 57/F PRESENTED TO ED FROM HOME CC: ABD PAIN . N/V SI: SBO T 97.5 HR 70 RR 16 BP 174/83 SAT 97% ROOM AIR WBC 12.7 IS: NS IVF BOLUS X1 MORPHINE IV X1 ZOFRAN IV X1 PATIENT ADMITTED TO MED/SURG UNIT 11/07/2018 DCP: PATIENT IS FROM HOME
[2018-11-09] VITALS (12 sets, daily range): BP systolic 101–151; BP diastolic 46–78
--- NOTE | 2018-11-09 01:30 | History and Physical Report ---
DATE OF ADMISSION: 11/08/2018 HISTORY OF PRESENT ILLNESS: The patient came in for initial SBO, had previous gallbladder surgery. Dr. Glover was also consulted by the ER doctor. The patient was having vomiting and having abdominal pain for one day and was also having staring and chills. The patient has a history of hernia surgery, history of tubal ligation, and cholecystectomy. The patient has a risk of SBO. According to SBO on the imaging scan and for that was kept NPO. She was having multiple vomiting and had severe abdominal pain, which is getting better at this point. Denies rectal bleeding. PAST MEDICAL HISTORY: Significant for gastroesophageal reflux disease, hernia, and history of gallstones. PAST SURGICAL HISTORY: Cholecystectomy, hernia surgery, and tubal ligation. MEDICATIONS: None. ALLERGIES: No known allergies. FAMILY HISTORY: Noncontributory. SOCIAL HISTORY: He denies history of smoking, alcohol, or illicit drugs. REVIEW OF SYSTEMS: HEENT: Denies headaches. RESPIRATORY: Denies shortness of breath. Denies cough. CARDIOVASCULAR: Denies chest pain or orthopnea. GASTROINTESTINAL: Reports to have severe abdominal pain and vomiting for one day. EXTREMITIES: Denies pain in lower extremities. PASTRY COOK: Denies change in vision or speech pattern. Feels weak. PHYSICAL EXAMINATION: VITAL SIGNS: Temperature is 98, pulse is 96, and blood pressure 159/88. HEENT: PERRLA. NECK: Supple. No lymphadenopathy. CHEST: Clear to auscultation. CARDIOVASCULAR: Regular rate and rhythm. No murmurs or extra sounds. GASTROINTESTINAL: Mild epigastric tenderness. No rebound. Positive bowel sounds. No organomegaly. Abdomen is soft. EXTREMITIES: Reflexes equal in both sides. Moves all four extremities. No edema. LABORATORY AND DIAGNOSTIC DATA: WBC of 12.7, hemoglobin 13, and platelets of 273,000. Sodium 139, potassium 4.5, chloride 103, BUN of 17 and creatinine 1. LFTs as mentioned normal. Lipase was 112. CT scan shows suspicion of mechanical small bowel obstruction. ASSESSMENT AND PLAN: Small bowel obstruction. NG-tube was placed. The patient is admitted to med/surg. Dr. Glover is consulted. I have also consulted Dr. Nhan Suarez, Dr. Denson, Dr. Espana for azotemia, and also as well as for the management of the abdominal pain and vomiting and small bowel obstruction. Kristie Flores M.D. DR: SHAYE JOB#: [id number] CC:
--- NOTE | 2018-11-09 07:47 | NUR ---
Received patient from Soo DEL CID, patient is up in bed, no distress noted, NPO status maintained, bed is locked and in lowest position, call light within reach, RN will contact MD, will continue to monitor with Kanika CHEN.
--- NOTE | 2018-11-09 07:47 | NUR ---
HAND-OFF: Report given to CASIMIRO Orozco
[2018-11-09 07:49] LABS: BASOPHILS % (AUTO) 0.4 % (0.0-2.0); EOSINOPHILS % (AUTO) 1.6 % (0.0-3.0); HEMATOCRIT 35.7 % (37.0-47.0); HEMOGLOBIN 11.3 G/DL (12.0-16.0); LYMPHOCYTES % (AUTO) 25.4 % (20.0-45.0); MEAN CORPUSCULAR VOLUME 77 FL (80-99); MONOCYTES % (AUTO) 11.2 % (1.0-10.0); NEUTROPHILS % (AUTO) 61.4 % (45.0-75.0); PLATELET COUNT 255 K/UL (150-450); RED BLOOD COUNT 4.63 M/UL (4.20-5.40); RED CELL DISTRIBUTION WIDTH 16.7 % (11.6-14.8); WHITE BLOOD COUNT 6.4 K/UL (4.8-10.8)
[2018-11-09 08:51] LABS: ANION GAP 9 mmol/L (5-15); BLOOD UREA NITROGEN 18 mg/dL (7-18); CALCIUM 8.4 MG/DL (8.5-10.1); CARBON DIOXIDE 25 MMOL/L (21-32); CHLORIDE 105 MMOL/L (98-107); POTASSIUM 3.8 MMOL/L (3.5-5.1); SODIUM 139 MMOL/L (136-145)
--- NOTE | 2018-11-09 09:15 | General Surgery Progress Note ---
General Surgery-Progress Note Subjective Symptoms: improved, pain absent, BM Additional Comments small bowel follow thru no SBO Objective Last 24 Hour Vital Signs Date Time Temp Pulse Resp B/P (MAP) Pulse Ox O2 Delivery O2 Flow Rate FiO2 11/09/18 08:00 98.3 70 18 129/52 (77) 98 11/09/18 04:00 98.7 80 20 127/76 (93) 98 11/09/18 00:00 98.4 84 20 120/74 (89) 98 11/08/18 21:00 Room Air 11/08/18 20:00 99.0 83 19 107/73 (84) 96 11/08/18 16:00 98.6 86 20 130/74 (92) 97 I&O Intake and Output 11/08/18 11/09/18 19:00 07:00 Intake Total 760 ml 1340 ml Output Total 500 ml Balance 260 ml 1340 ml Intake Oral 700 ml 920 ml IV Total 60 ml 420 ml Output Gastric Drainage Total 500 ml # Voids 2 5 # Bowel Movements 1 1 Respiratory: clear Abdomen: soft, flat, non-tender, present bowel sounds Extremities: no tenderness Laboratory Tests Test 11/09/18 07:25 White Blood Count 6.4 K/UL (4.8-10.8) # Red Blood Count 4.63 M/UL (4.20-5.40) Hemoglobin 11.3 G/DL (12.0-16.0) L Hematocrit 35.7 % (37.0-47.0) L Mean Corpuscular Volume 77 FL (80-99) L Mean Corpuscular Hemoglobin 24.4 PG (27.0-31.0) L Mean Corpuscular Hemoglobin Concent 31.6 G/DL (32.0-36.0) L Red Cell Distribution Width 16.7 % (11.6-14.8) H Platelet Count 255 K/UL (150-450) Mean Platelet Volume 6.4 FL (6.5-10.1) L Neutrophils (%) (Auto) 61.4 % (45.0-75.0) Lymphocytes (%) (Auto) 25.4 % (20.0-45.0) Monocytes (%) (Auto) 11.2 % (1.0-10.0) H Eosinophils (%) (Auto) 1.6 % (0.0-3.0) Basophils (%) (Auto) 0.4 % (0.0-2.0) Prothrombin Time 11.0 SEC (9.30-11.50) Prothromb Time International Ratio 1.0 (0.9-1.1) Activated Partial Thromboplast Time 29 SEC (23-33) Sodium Level 139 MMOL/L (136-145) Potassium Level 3.8 MMOL/L (3.5-5.1) Chloride Level 105 MMOL/L (98-107) Carbon Dioxide Level 25 MMOL/L (21-32) Anion Gap 9 mmol/L (5-15) Blood Urea Nitrogen 18 mg/dL (7-18) Creatinine 1.0 MG/DL (0.55-1.30) Estimat Glomerular Filtration Rate 56.8 mL/min (>60) Glucose Level 84 MG/DL (74-106) Calcium Level 8.4 MG/DL (8.5-10.1) L Assessment Additional Comments Abdominal pain resolved Plan Additional Comments I will sign off Nader Glover MD Nov 09, 2018 09:15
[2018-11-09] MEDS: Pantoprazole Inj IVP SCH (09:40)
[2018-11-09] MEDS ORDERED: Lidocaine 1% MPF 10mg/ml 5ml ONE (11:30)
[2018-11-09] MEDS ORDERED: Propofol 200mg/20ml IV ONE (11:30)
--- NOTE | 2018-11-09 11:49 | Anethesia Preoperative Eval ---
Anesthesia Pre-op PMH/ROS General Date of Evaluation: Nov 09, 2018 Time of Evaluation: 11:47 Anesthesiologist: shen ASA Score: ASA 3 Mallampati Score Class I : Soft palate, uvula, fauces, pillars visible Class II: Soft palate, uvula, fauces visible Class III: Soft palate, base of uvula visible Class IV: Only hard plate visible Mallampati Classification: Class II Surgeon: vignesh Diagnosis: anemia Surgical Procedure: egd Anesthesia History: none Family History: no anesthesia problems Allergies: Coded Allergies: No Known Allergies (Unverified , 11/28/14) Medications: see eMAR Patient NPO?: Yes Past Medical History Cardiovascular: Reports: HTN Pulmonary: Reports: other - acute bronchitis Gastrointestinal/Genitourinary: Reports: other - small bowel obstruction Hematology/Immune: Reports: anemia Anesthesia Pre-op Phys. Exam Physician Exam Last Vital Signs Date Time Temp Pulse Resp B/P (MAP) Pulse Ox O2 Delivery O2 Flow Rate FiO2 11/09/18 09:40 70 129/52 11/09/18 08:30 Room Air 11/09/18 08:00 98.3 18 98 11/08/18 01:12 99 Constitutional: NAD Neurologic: CN 2-12 intact Cardiovascular: RRR Respiratory: CTA Gastrointestinal: S/NT/ND Airway Exam Mallampati Score: Class II MO: limited Neck: flexible TMD: 2fb ROM: limited Dentures: upper Anesthesia Pre-op A/P Labs Hematology Test 11/09/18 07:25 White Blood Count 6.4 K/UL (4.8-10.8) # Red Blood Count 4.63 M/UL (4.20-5.40) Hemoglobin 11.3 G/DL (12.0-16.0) L Hematocrit 35.7 % (37.0-47.0) L Mean Corpuscular Volume 77 FL (80-99) L Mean Corpuscular Hemoglobin 24.4 PG (27.0-31.0) L Mean Corpuscular Hemoglobin Concent 31.6 G/DL (32.0-36.0) L Red Cell Distribution Width 16.7 % (11.6-14.8) H Platelet Count 255 K/UL (150-450) Mean Platelet Volume 6.4 FL (6.5-10.1) L Neutrophils (%) (Auto) 61.4 % (45.0-75.0) Lymphocytes (%) (Auto) 25.4 % (20.0-45.0) Monocytes (%) (Auto) 11.2 % (1.0-10.0) H Eosinophils (%) (Auto) 1.6 % (0.0-3.0) Basophils (%) (Auto) 0.4 % (0.0-2.0) Coagulation Test 11/09/18 07:25 Prothrombin Time 11.0 SEC (9.30-11.50) Prothromb Time International Ratio 1.0 (0.9-1.1) Activated Partial Thromboplast Time 29 SEC (23-33) Chemistry Test 11/09/18 07:25 Sodium Level 139 MMOL/L (136-145) Potassium Level 3.8 MMOL/L (3.5-5.1) Chloride Level 105 MMOL/L (98-107) Carbon Dioxide Level 25 MMOL/L (21-32) Anion Gap 9 mmol/L (5-15) Blood Urea Nitrogen 18 mg/dL (7-18) Creatinine 1.0 MG/DL (0.55-1.30) Estimat Glomerular Filtration Rate 56.8 mL/min (>60) Glucose Level 84 MG/DL (74-106) Calcium Level 8.4 MG/DL (8.5-10.1) L Risk Assessment & Plan Assessment: asa3 Plan: mac Status Change Before Surgery: No Pre-Antibiotics Drug: Asha Dejesus MD Nov 09, 2018 11:49
[2018-11-09] MEDS ORDERED: NS 500ML IVPB ONE (11:52)
[2018-11-09] MEDS ORDERED: fentaNYL 100 mcg/2 mL IV PRN (12:00)
[2018-11-09] MEDS ORDERED: DiphenhydrAMINE 50mg/ml Inj IVP PRN (12:00)
[2018-11-09] MEDS ORDERED: Atropine Inj 1mg/10ml Syr IV PRN (12:00)
[2018-11-09] MEDS ORDERED: Midazolam 2mg/2ml Inj IVP PRN (12:00)
--- NOTE | 2018-11-09 12:21 | Endoscopy Procedure Note ---
Endoscopy Procedure Note General Indication for Procedure: abd pain Procedures Performed: EGD Operative Findings/Diagnosis: gastrtis Specimen: yes Pt Tolerated Procedure Well: Yes Estimated Blood Loss: none Anesthesia Anesthesiologist: shen Anesthesia: MAC Inserted Devices Implant(s) used?: No GI Core Measures 50 yrs or older w/o bx or poly: Not Applicable 10yrs. F/U not recommended: Not Applicable Melecio Espana MD Nov 09, 2018 12:21
--- NOTE | 2018-11-09 12:56 | NUR ---
NURSE NOTES: Patient arrived from her EGD, report received from Aida that patient has gastritis, patient diet advanced to clear liquid diet, no distress noted, will continue to monitor.
--- NOTE | 2018-11-09 13:19 | Immediate Post-Op Evaluation ---
Immediate Post-Op Evalulation Immediate Post-Op Evalulation Procedure: egd/bx Date of Evaluation: Nov 09, 2018 Time of Evaluation: 12:25 IV Fluids: 250ml 0.9ns Blood Products: none Estimated Blood Loss: negligible Blood Pressure Systolic: 109 Blood Pressure Diastolic: 46 Pulse Rate: 79 Respiratory Rate: 18 O2 Sat by Pulse Oximetry: 100 Temperature (Fahrenheit): 97.0 Pain Score (1-10): 0 Nausea: No Vomiting: No Complications none Patient Status: awake, reacts, patent Hydration Status: adequate Drug: Asha Dejesus MD Nov 09, 2018 13:19
--- NOTE | 2018-11-09 13:21 | 48 Hour Post Anesthesia Eval ---
Post Anesthesia Evaluation Procedure: egd/bx Date of Evaluation: Nov 09, 2018 Time of Evaluation: 12:27 Blood Pressure Systolic: 120 0: 53 Pulse Rate: 72 Respiratory Rate: 18 Temperature (Fahrenheit): 97.0 O2 Sat by Pulse Oximetry: 100 Airway: patent Nausea: No Vomiting: No Pain Intensity: 0 Hydration Status: adequate Cardiopulmonary Status: stable Mental Status/LOC: patient returned to baseline Post-Anesthesia Complications: none Follow-up care needed: N/A Asha Bishop MD Nov 09, 2018 13:21
--- NOTE | 2018-11-09 16:00 | Procedure Note ---
DATE OF PROCEDURE: 11/09/2018 SURGEON: Melecio Espana M.D. PROCEDURE: Upper endoscopy with biopsy. ANESTHESIA: Per Dr. Quiñonez. INSTRUMENT: Olympus adult flexible upper endoscope. INDICATION: Abdominal pain, nausea, vomiting. REASON FOR PROCEDURE: The procedure, risks, benefits, and possible consequences, including hemorrhage, aspiration, perforation and infection, and alternative treatments, were explained to the patient/legal guardian by Dr. Melecio Espana and the patient/legal guardian understood and accepted these risks. PROCEDURE IN DETAIL: After informed consent was obtained and the patient was adequately sedated, the Olympus upper endoscope was advanced from mouth into the second portion of duodenum and retroflexion was performed in the stomach. The patient had evidence of atrophic gastritis. There was evidence of severe focal gastritis in the proximal body of the stomach around the greater curvature of unknown significance. Biopsy from this area was obtained. We also did random biopsy of the antrum to rule out H. pylori infection. The patient on the retroflexion in the stomach, there was evidence of a small hiatal hernia. The patient tolerated the procedure very well without any complication. SUMMARY OF FINDINGS: 1. Focal severe gastritis status post biopsy. 2. Antral gastritis status post biopsy. 3. Small hiatal hernia. RECOMMENDATIONS: Follow up biopsy results and treat accordingly. I want to thank, Dr. Kristie Flores, for this kind referral. Melecio Espana M.D. DR: Deny JOB#: [id number] CC: Kristie Flores M.D.; Fax#: [phone]
[2018-11-09] MEDS: HYDROmorphone 1mg/ml Carpuject IVP PRN (17:54)
--- NOTE | 2018-11-09 19:35 | NUR ---
HAND-OFF: Report given to APRIL Gardner.
--- NOTE | 2018-11-09 19:39 | NUR ---
NURSE NOTES: Received report from Will CHEN. Pt is A&O x 4 laying supine in bed. No signs of pain or distress. IV site dry& intact, infusing IV fluids. Family at bedside. Call light in reach, bed in lowest position, side rails up x2. Will continue to monitor pt.
--- NOTE | 2018-11-09 21:59 | General Progress Note ---
Assessment/Plan Problem List: (1) Gastritis ICD Codes: K29.70 - Gastritis, unspecified, without bleeding SNOMED: 1799080 (2) SBO (small bowel obstruction) ICD Codes: K56.69 - Other intestinal obstruction SNOMED: 461500749 (3) Abdominal pain of unknown etiology ICD Codes: R10.9 - Unspecified abdominal pain SNOMED: 774806235 Status: progressing Assessment/Plan afebrile sbo resolving opt for conservative management vomitting improving Subjective ROS Limited/Unobtainable: Yes Gastrointestinal/Abdominal: Reports: abdominal pain, nausea Allergies: Coded Allergies: No Known Allergies (Unverified , 11/28/14) Objective Last 24 Hour Vital Signs Date Time Temp Pulse Resp B/P (MAP) Pulse Ox O2 Delivery O2 Flow Rate FiO2 11/09/18 20:00 98.9 69 20 151/78 (102) 97 11/09/18 16:00 99.1 70 18 128/56 (80) 97 11/09/18 13:21 72 18 100 11/09/18 13:19 79 18 100 11/09/18 12:30 72 19 117/63 99 Room Air 11/09/18 12:25 72 18 120/53 98 Room Air 11/09/18 12:23 77 18 115/56 100 Nasal Cannula 3 11/09/18 12:18 75 15 101/49 100 Nasal Cannula 3 11/09/18 12:13 97.0 79 18 109/46 99 Nasal Cannula 3 11/09/18 12:00 98.2 68 18 124/71 (88) 98 11/09/18 11:50 98.2 68 18 124/71 (88) 98 11/09/18 09:40 70 129/52 11/09/18 08:30 Room Air 11/09/18 08:00 98.3 70 18 129/52 (77) 98 11/09/18 04:00 98.7 80 20 127/76 (93) 98 11/09/18 00:00 98.4 84 20 120/74 (89) 98 Intake and Output 11/08/18 11/09/18 19:00 07:00 Intake Total 760 ml 1340 ml Output Total 500 ml Balance 260 ml 1340 ml Intake Oral 700 ml 920 ml IV Total 60 ml 420 ml Output Gastric Drainage Total 500 ml # Voids 2 5 # Bowel Movements 1 1 Laboratory Tests 11/09/18 07:25: White Blood Count 6.4#, Red Blood Count 4.63, Hemoglobin 11.3L, Hematocrit 35.7L , Mean Corpuscular Volume 77L, Mean Corpuscular Hemoglobin 24.4L, Mean Corpuscular Hemoglobin Concent 31.6L, Red Cell Distribution Width 16.7H, Platelet Count 255, Mean Platelet Volume 6.4L, Neutrophils (%) (Auto) 61.4, Lymphocytes (%) (Auto) 25.4, Monocytes (%) (Auto) 11.2H, Eosinophils (%) (Auto) 1.6, Basophils (%) (Auto) 0.4, Prothrombin Time 11.0, Prothromb Time International Ratio 1.0, Activated Partial Thromboplast Time 29, Sodium Level 139, Potassium Level 3.8, Chloride Level 105, Carbon Dioxide Level 25, Anion Gap 9, Blood Urea Nitrogen 18, Creatinine 1.0, Estimat Glomerular Filtration Rate 56.8, Glucose Level 84, Calcium Level 8.4L Height (Feet): 5 Height (Inches): 0.00 Weight (Pounds): 190 Neck: supple Cardiovascular: normal rate Respiratory/Chest: lungs clear Abdomen: soft Kristie Flores MD Nov 09, 2018 21:59
[2018-11-10] VITALS: BP 122/76
[2018-11-10 04:41] VITALS: BP 140/72
--- NOTE | 2018-11-10 07:31 | NUR ---
HAND-OFF: Report given to Jovana RN. Pt is stable.
--- NOTE | 2018-11-10 07:44 | NUR ---
NURSE NOTES: received patient sitting at the edge of the bed. venting about the clear liq diet. obtained to advance diet. explained the importance of the process. patient able to make things known. On IVF infusing well. No c/o N/V. no c/o pain/discomfort noted. bed is in the lowest position. call light is within reach and siderails are up x2. will cont to monitor.
[2018-11-10 07:53] LABS: BASOPHILS % (AUTO) 0.5 % (0.0-2.0); EOSINOPHILS % (AUTO) 1.3 % (0.0-3.0); HEMATOCRIT 41.9 % (37.0-47.0); LYMPHOCYTES % (AUTO) 38.9 % (20.0-45.0); MEAN CORPUSCULAR VOLUME 79 FL (80-99); NEUTROPHILS % (AUTO) 52.3 % (45.0-75.0); PLATELET COUNT 282 K/UL (150-450); RED BLOOD COUNT 5.31 M/UL (4.20-5.40); RED CELL DISTRIBUTION WIDTH 17.1 % (11.6-14.8); WHITE BLOOD COUNT 5.6 K/UL (4.8-10.8)
[2018-11-10 08:12] VITALS: BP 129/81
[2018-11-10 08:19] LABS: ANION GAP 8 mmol/L (5-15); BLOOD UREA NITROGEN 12 mg/dL (7-18); CALCIUM 8.7 MG/DL (8.5-10.1); CARBON DIOXIDE 26 MMOL/L (21-32); CHLORIDE 105 MMOL/L (98-107); CREATININE 0.9 MG/DL (0.55-1.30); POTASSIUM 3.4 MMOL/L (3.5-5.1); SODIUM 139 MMOL/L (136-145)
[2018-11-10] MEDS: Pantoprazole Inj IVP SCH (08:50)
--- NOTE | 2018-11-10 09:15 | NUR ---
NURSE NOTES: Notified Dr. Lewis for the K+3.4 today. awaits for a call back. Addendum: 11/10/[address] LVN obtained order for potassium from [facility]. administered.
[2018-11-10 12:04] VITALS: BP 154/86
--- NOTE | 2018-11-10 12:07 | NUR ---
NURSE NOTES: d/c home with instructions. personal belongings noted. will accompanied by her daughter, Estephania. tolerated food intake well. voiding without any pain or discomfort. no c/o abdominal pain. had bm today. will cont to monitor.
--- NOTE | 2018-11-10 13:02 | GI Progress Note ---
Assessment/Plan Problems: (1) GERD (gastroesophageal reflux disease) ICD Codes: K21.9 - Gastro-esophageal reflux disease without esophagitis SNOMED: 721423213 (2) Abdominal pain of unknown etiology ICD Codes: R10.9 - Unspecified abdominal pain SNOMED: 116284006 (3) Gastritis ICD Codes: K29.70 - Gastritis, unspecified, without bleeding SNOMED: 1005625 (4) Enteritis ICD Codes: K52.9 - Noninfective gastroenteritis and colitis, unspecified SNOMED: 84695416 Status: doing well, stable, progressing Status Narrative Discussed with Dr. Espana Assessment/Plan SUMMARY OF FINDINGS: 1. Focal severe gastritis status post biopsy. 2. Antral gastritis status post biopsy. 3. Small hiatal hernia. RECOMMENDATIONS: okay for DC per GI standpoint Okay to advance diet Prescription for Protonix times 1 month given, to follow-up with PCP Follow up biopsy results and treat accordingly. The patient was seen and examined at bedside and all new and available data was reviewed in the patients chart. I agree with the above findings, impression and plan. (Patient seen earlier today. Signature stamp does not reflect patient encounter time.). - Melecio Espana MD Subjective Subjective Abdominal pain resolved Patient has history of epigastric pain from GERD Objective Last 24 Hour Vital Signs Date Time Temp Pulse Resp B/P (MAP) Pulse Ox O2 Delivery O2 Flow Rate FiO2 11/10/18 12:04 98.0 73 20 154/86 (108) 98 11/10/18 09:00 Room Air 11/10/18 08:12 99.0 77 20 129/81 (97) 97 11/10/18 04:41 98.9 70 18 140/72 (94) 96 11/10/18 00:00 98.6 65 20 122/76 (91) 98 11/09/18 21:00 Room Air 11/09/18 20:00 98.9 69 20 151/78 (102) 97 11/09/18 16:00 99.1 70 18 128/56 (80) 97 11/09/18 13:21 72 18 100 11/09/18 13:19 79 18 100 Intake and Output 11/09/18 11/10/18 19:00 07:00 Intake Total 360 ml 840 ml Balance 360 ml 840 ml Intake Oral 240 ml IV Total 360 ml 600 ml # Voids 3 3 Laboratory Tests Test 11/10/18 05:52 White Blood Count 5.6 K/UL (4.8-10.8) Red Blood Count 5.31 M/UL (4.20-5.40) Hemoglobin 13.0 G/DL (12.0-16.0) Hematocrit 41.9 % (37.0-47.0) Mean Corpuscular Volume 79 FL (80-99) L Mean Corpuscular Hemoglobin 24.5 PG (27.0-31.0) L Mean Corpuscular Hemoglobin Concent 31.0 G/DL (32.0-36.0) L Red Cell Distribution Width 17.1 % (11.6-14.8) H Platelet Count 282 K/UL (150-450) Mean Platelet Volume 5.7 FL (6.5-10.1) L Neutrophils (%) (Auto) 52.3 % (45.0-75.0) Lymphocytes (%) (Auto) 38.9 % (20.0-45.0) Monocytes (%) (Auto) 7.0 % (1.0-10.0) Eosinophils (%) (Auto) 1.3 % (0.0-3.0) Basophils (%) (Auto) 0.5 % (0.0-2.0) Sodium Level 139 MMOL/L (136-145) Potassium Level 3.4 MMOL/L (3.5-5.1) L Chloride Level 105 MMOL/L (98-107) Carbon Dioxide Level 26 MMOL/L (21-32) Anion Gap 8 mmol/L (5-15) Blood Urea Nitrogen 12 mg/dL (7-18) Creatinine 0.9 MG/DL (0.55-1.30) Estimat Glomerular Filtration Rate > 60 mL/min (>60) Glucose Level 78 MG/DL (74-106) Calcium Level 8.7 MG/DL (8.5-10.1) Height (Feet): 5 Height (Inches): 0.00 Weight (Pounds): 190 General Appearance: WD/WN, no apparent distress, alert Cardiovascular: normal rate Respiratory/Chest: normal breath sounds, no respiratory distress Abdominal Exam: normal bowel sounds, non tender, soft Extremities: normal range of motion, non-tender LujanAimee winter NP Nov 10, 2018 13:02
[2018-11-10] MEDS ORDERED: 1/2 NS 1000ml IV ONE (13:24)
--- NOTE | 2018-11-10 13:25 | NUR ---
NURSE NOTES: Patient discharged with family member in stable condition. No complain of N/V and distress. Discharge instruction given to patient and verbalized understanding. Prescription medication and belonging given to patient. IV and ID removed. Patient ambulated out with all personal belongings with steady gait.
--- NOTE | 2018-11-12 10:12 | Discharge Summary ---
Discharge Summary Discharge Summary _ DATE OF ADMISSION: 11/08/2018 DATE OF DISCHARGE: 11/10/2018 DISCHARGED BY: Dr Flores REASON FOR ADMISSION: 57 years old female with history of hypertension, cholecystectomy, recurrent gastritis, previous small bowel obstruction, presented with chief complaint of abdominal pain , localized to the epigastric area. Patient reported several episodes of bilious vomiting. No blood in vomitus. No diarrhea. Patient reported not passing gas. Pain reported as being sharp in nature, 9 out of 10 on a scale 1-10. Patient experienced similar symptoms in the past. Patient denied fever and chills. Upon evaluation vital signs revealed elevated blood pressure 174/83. Laboratory workup revealed leukocytosis WBC 12.7, stable hemoglobin and hematocrit ,stable electrolytes and renal parameters ,stable LFT and lipase. CT of the abdomen and pelvis revealed suspicion of mechanical small bowel obstruction . involving the distal small bowel with transition identified in the lower pelvis. The appearance was unchanged from 12/15/2016, suggesting that this may be a chronic or intermittent phenomenon. Fatty liver. Hiatal hernia. Status post cholecystectomy. Patient was admitted for further management . CONSULTANTS: GI specialist Dr. Espana surgery [facility] COURSE: Patient was admitted to medical surgical floor. Patient was kept n.p.o. and started on the IV hydration. G-tube was inserted for bowel decompression. GI specialist and surgeon closely followed. Patient started on GI prophylaxis with PPI. Patient subsequently undergone upper endoscopy with biopsy to evaluate the cause of abdominal pain on 11/09, which revealed focal severe gastritis, status post biopsy, antral gastritis status post biopsy, small hiatal hernia. GI specialist recommended follow-up with biopsy results and treat accordingly. At the time of this dictation biopsy results still pending. Follow up KUB revealed relative absence of bowel gas . NG tube in good position. Surgeon seen and evaluated the patient. According to surgeon patient did not appear to have bowel obstruction, likely peptic ulcer disease. Surgeon recommended conservative management. Pain management was addressed as needed. Symptomatic care provided , antiemetic administered as needed. Small bowel follow through with Gastrografin revealed no evidence of small bowel obstruction. NG tube was discontinued. Patient was slowly started on liquid diet and was advanced as tolerated. Patient was able to tolerate diet. Patient was given prescription for Protonix for 1 month. Blood pressure was managed with calcium channel lizabeth and stabilized . Abdominal pain resolved, patient was able to tolerate diet , nausea and vomiting resolved. Patient was stable for discharge home. FINAL DIAGNOSES: Abdominal pain, likely related to gastritis Status post upper endoscopy with biopsy Focal severe gastritis Antral gastritis Enteritis GERD DISCHARGE MEDICATIONS: See Medication Reconciliation list. DISCHARGE INSTRUCTIONS: Patient was discharged home. . Follow up with primary care provider in one week. I have been assigned to dictate discharge summary for this account. I was not involved in the patient's management. Genesis Lozoya NP Nov 12, 2018 10:12
== END 2018-11-10 13:25 | disposition home or self-care (01) | DRG 392 ==
LOC: EMR 23:09 → 3E 11-08 00:09 → EDBEDREQ 11-08 00:14
PROC: 0DB68ZX Excision of Stomach, Via Natural or Artificial Opening Endoscopic, Diagnostic (ICD-10-PCS; principal; 2018-11-09 12:01)
DX: K29.60 Other gastritis without bleeding (principal); K44.9 Diaphragmatic hernia without obstruction or gangrene; D72.829 Elevated white blood cell count, unspecified; I10 Essential (primary) hypertension; D64.9 Anemia, unspecified; K76.0 Fatty (change of) liver, not elsewhere classified; J20.9 Acute bronchitis, unspecified; K21.9 Gastro-esophageal reflux disease without esophagitis; Z90.49 Acquired absence of other specified parts of digestive tract
CPT/HCPCS: 36415; 74018; 74176; 74250; 80048; 80053; 81003; 82248; 83690; 85007; 85025; 85610; 85730; 94003; 94150; 96361; 96374; 96375; 96376; 99284; J2405; J8499